=== PATIENT | female | born 1995 | race Caucasian/White ===

== ENCOUNTER 2017-01-13 12:33 | Emergency (ER) | payer BC ==
[~2017-01-13 12:33] MED LIST: METH-37 PO; PRED20TA PO; TRAM50TA PO
[2017-01-13 12:37] VITALS: BP 139/86
--- NOTE | 2017-01-13 13:37 | PHYS DOC ---
General Chief Complaint: BACK PAIN OR INJURY Stated Complaint: BACK PAIN Time Seen by MD: 12:35 Source: patient, family Exam Limitations: no limitations Problems: History of Present Illness Initial Comments Pt is 21/F to ED with mom c/o back pain. Pt states she has a new growth R flank which is causing her severe pain. States she's had several lipomas removed in the past, has scars b/l iliac crests. Now says past 3 weeks severe back pain radiating from the skin bump just right lateral to spine at around L2. States this causes pain radiating around to front of abdomen and down leg. States the pain is located in small nodule in skin (she manually directs my finger). No prearrival treatment, pt with crying voice as she talks no tears. Pt is noted to be resting comfortably when she doesn't realize she's being observed, becomes tearful/complaining of severe pain when engaged with staff. Denies trauma, no leg weakness/saddle anesthesia/incontinence. Timing/Duration: constant (3 wks) Severity: severe Associated Symptoms: other Allergies: Coded Allergies: cyclobenzaprine (Verified Adverse Reaction, Unknown, Nausea and Vomiting, 01/13/17) naproxen (Verified Adverse Reaction, Unknown, Nausea and Vomiting, 01/13/17 ) Past Medical History Medical History: asthma, other (DDD, chronic back pain) Surgical History: no surgical history (lipoma removals) Social History Smoker: cigarettes Alcohol: occasionally Drugs: marijuana Review of Systems Constitutional: denies chills, denies fever Respiratory: denies cough, denies shortness of breath Cardiovascular: denies chest pain, denies palpitations Gastrointestinal: denies nausea, denies vomiting Genitourinary: denies frequency, denies hematuria Musculoskeletal: see HPI Skin: see HPI Psychiatric/Neurological: denies headache, denies numbness, denies paresthesia Physical Exam General Appearance: no apparent distress Eyes: bilateral eye EOMI, bilateral eye PERRL, bilateral eye normal inspection Ear, Nose, Throat: hearing grossly normal, normal ENT inspection Neck: non-tender, supple Respiratory: normal breath sounds, no respiratory distress Cardiovascular: normal peripheral pulses, regular rate, rhythm Gastrointestinal: non tender, soft Back: no CVA tenderness, no vertebral tenderness Extremities: non-tender, normal inspection Neurologic/Psychiatric: investment officer II-XII nml as tested, no motor/sensory deficits, alert, normal mood/affect, oriented x 3, other (dtrs/strength/sensory equal and intact b/l LE, neg SLR b/l) Skin: normal color, warm/dry (right low back lateral on right side of spine no acute or abnormal findings skin or subcutaneous. Nodule pt directed me to either small lipoma or lymph node, ) Orders, Labs, Meds Discussed pt symptoms with her at length. Pain distribution and reported etiology do not correlate, pt has no CVA tenderness so pyelo not likely. Pt insist sx are in her skin, requests pain meds and surgical excision of the skin lesion "I already have bone on bone in my spine, I am literally falling apart. I don't want to be paralyzed, I need this removed." I notified her that nothing is medically indicated to be removed emergently here in the ED. No cause of pain requiring narcotic pain medication. Pt becomes very angry, demanding further workup and pain meds. Pt advised to f/u PCP but she states Dr Mccullough doesn't do anything to help her back pain, she wants all of her health needs met here in ED. "Do I just need to go out and hurt or paralyze myself to get help?" Pt had already notified me that Dr Mccullough put her on phentermine trial for weight loss in attempt to treat pt stated back pain. Requested a list of doctors, but as she went down the list she stated she had either seen specific doctor and they don't help her or they were affiliated with [facility]. Pt states she won't see [facility] doctors. Pt given the benefit of the doubt, but she refused toradol. Said the prescribed meds would not help her, pt angry raising her voice cursing. Drug seeking behavior noted. Pt advised to stop smoking and abusing marijuana. Departure Time of Disposition: 13:34 Disposition: 01 HOME, SELF-CARE Diagnosis: back pain NOS, possible lipoma Condition: GOOD Patient Instructions: Lipoma-Brief Additional Instructions: Activity as tolerated. Aggressive hydration with gatorade, water. OTC tylenol for baseline pain. Heating pad 15-20 minutes, 4-6 times daily. Rx: lidoderm, use as directed. Follow up with Amrita Mccullough for recheck in 3-5 days. Return to ED with new or changing symptoms. KING GARCIA DO Jan 13, 2017 13:37
[2017-01-13 13:45] LABS: BILIRUBIN,URINE NEG (NEG); CLARITY,URINE CLEAR; COLOR,URINE YELLOW; GLUCOSE,URINE NEG (NEG); UROBILINOGEN,URINE 0.2 mg/dL (0.2 mg/dL)
[2017-01-13] MEDS ORDERED: KETOROLAC 60 MG/2 ML VIAL. IM ONE (13:45)
[2017-01-13 13:46] LABS: NITRITE,URINE NEG (NEG)
== END 2017-01-13 13:45 | disposition home or self-care (01) ==
LOC: ER 12:33
DX: M54.9 Dorsalgia, unspecified (principal); G89.29 Other chronic pain; Z76.5 Malingerer [conscious simulation]; J45.909 Unspecified asthma, uncomplicated; F17.210 Nicotine dependence, cigarettes, uncomplicated; F12.10 Cannabis abuse, uncomplicated; Z88.8 Allergy status to other drugs, medicaments and biological substances
CPT/HCPCS: 81003; 96372; 99283; J1885

== ENCOUNTER → 2017-02-09 | Outpatient (CLI) | payer BC ==
[2017-01-13 12:37] VITALS: BP 139/86
--- NOTE | 2017-02-09 12:50 | RAD ---
Soft tissue ultrasound History: Lipoma of the lumbosacral region, D17.79. Comparison: None. Findings: Ultrasound imaging was performed by ocular care technologist. Ultrasound imaging was first performed involving previous surgical scar. On the left side of the surgical scar, there appears to be a small irregular focus of mildly increased echogenicity measuring 1.0 x 0.4 x 0.3 cm. This could represent small residual/recurrent lipoma versus scarring. Additional focus with similar appearance is seen in the right lower back at the scar. This area measures 0.9 x 0.6 x 0.3 cm. Additional imaging was performed in the right lower back in area of apparent new palpable lesion. No ultrasound lesion is seen. Impression: 1. Associated with previous surgical site, there are 2 small, mildly irregular hyperechoic masses involving the subcutaneous fat. These could represent areas of scarring versus small residual/recurrent lipomas. 2. No suspicious ultrasound abnormality is identified in the right lower back superior to the scar, in area of new palpable abnormality.
== END | disposition home or self-care (01) ==
LOC: US 11:04
PROVIDERS: ATTEND Physician Assistant
DX: D17.79 Benign lipomatous neoplasm of other sites (principal)
CPT/HCPCS: 76536

== ENCOUNTER 2020-08-15 19:31 | Emergency (ER) | payer BC ==
[~2020-08-15] VITALS: Ht 160 cm; Wt 82.7 kg
[2020-08-15 19:49] VITALS: BP 149/80
[2020-08-15] MEDS ORDERED: ONDANSETRON PF 4 MG/2 ML VIAL. ONE (19:59)
[2020-08-15 20:06] LABS: BARBITURATES NEG (NEG); BENZODIAZEPINES NEG (NEG); CANNABINOIDS POS (NEG); COCAINE NEG (NEG); METHADONE NEG (NEG); OPIATES NEG (NEG); PHENCYCLIDINE NEG (NEG)
[2020-08-15 20:11] LABS: BILIRUBIN,URINE NEG (NEG); CLARITY,URINE HAZY; COLOR,URINE PINK; GLUCOSE,URINE NEG (NEG)
[2020-08-15 20:12] LABS: NITRITE,URINE NEG (NEG); UROBILINOGEN,URINE 0.2 mg/dL (0.2 mg/dL)
[2020-08-15 20:14] LABS: BACTERIA,URINE FEW /HPF (0-FEW); RBC,URINE TNTC /HPF (0-2); SQUAMOUS EPITHELIAL CELL,UR OCC /LPF; WBC,URINE RARE /HPF (0-4)
[2020-08-15 20:15] LABS: AMPHETAMINE/METHAMPHETAMINE NEG (NEG)
[2020-08-15] MEDS ORDERED: ONDANSETRON PF 4 MG/2 ML VIAL. IVP ONE (20:15)
--- NOTE | 2020-08-15 20:20 | PHYS DOC ---
Past History Past Medical History: Asthma, Other (ANGELLA HERRON APRN) Past Surgical History: Other Additional Past Surgical Histo: BAKC SX (ANGELLA HERRON APRN) Alcohol Use: Occasionally Drug Use: Marijuana (ANGELLA HERRON APRN) Adult General Chief Complaint Chief Complaint: ABDOMINAL PAIN IN HPI HPI Patient is a female 2, Para, 1 miscarriage who presents to the ED today complaining of vaginal bleeding and that began this evening. Patient is also complaining of mild intermittent lower abdominal cramping. Denies anything specifically exacerbating or relieving her symptoms. Denies any fever, denies any nausea vomiting. She states she is very anxious right now because the last time she lost a at 3 weeks. (ANGELLA HERRON APRN) Review of Systems Review of Systems Constitutional: Denies fever or chills [] Eyes: Denies change in visual acuity, redness, or eye pain [] HENT: Denies nasal congestion or sore throat [] Respiratory: Denies cough or shortness of breath [] Cardiovascular: No additional information not addressed in HPI [] GI: Denies abdominal pain, nausea, vomiting, bloody stools or diarrhea [] Reports vaginal bleeding in : Denies dysuria or hematuria [] Musculoskeletal: Denies back pain or joint pain [] Integument: Denies rash or skin lesions [] Neurologic: Denies headache, focal weakness or sensory changes [] Endocrine: Denies polyuria or polydipsia [] All other systems were reviewed and found to be within normal limits, except as documented in this note. (ANGELLA HERRON APRN) Current Medications Current Medications Current Medications Medications (Trade) Dose Ordered Sig/Hetal Start Time Stop Time Status Last Admin Dose Admin Ondansetron HCl (Zofran) 4 mg 1X ONCE 08/15/20 20:15 08/15/20 20:16 DC 08/15/20 20:13 4 MG (ANGELLA HERRON APRN) Allergies Allergies Allergies Coded Allergies Type Severity Reaction Last Updated Verified cyclobenzaprine Adverse Reaction Unknown Nausea and Vomiting 01/13/17 Yes naproxen Adverse Reaction Unknown Nausea and Vomiting 01/13/17 Yes (ANGELLA HERRON APRN) Physical Exam Physical Exam Constitutional: Well developed, well nourished, no acute distress, non-toxic appearance. [] HENT: Normocephalic, atraumatic, bilateral external ears normal, oropharynx moist, no oral exudates, nose normal. [] Eyes: PERRLA, EOMI, conjunctiva normal, no discharge. [] Neck: Normal range of motion, no tenderness, supple, no stridor. [] Cardiovascular:Heart rate regular rhythm, no murmur [] Lungs & Thorax: Bilateral breath sounds clear to auscultation [] Abdomen: Bowel sounds normal, soft, no tenderness, no masses, no pulsatile masses. [] Pelvic exam External pelvic appears normal, cervix is visualized, closed, no CMT, no adnexal tenderness, small amount of bright red blood in the vaginal vault. Skin: Warm, dry, no erythema, no rash. [] Back: No tenderness, no CVA tenderness. [] Extremities: No tenderness, no cyanosis, no clubbing, ROM intact, no edema. [] Neurologic: Alert and oriented X 3, normal motor function, normal sensory function, no focal deficits noted. [] Psychologic: Affect normal, judgement normal, mood normal. [] (ANGELLA HERRON APRN) Current Patient Data Vital Signs Vital Signs Date Time Temp Pulse Resp B/P (MAP) Pulse Ox O2 Delivery O2 Flow Rate FiO2 08/15/20 19:49 97.3 95 18 149/80 (103) 97 Room Air Lab Results Laboratory Tests Test 08/15/20 19:40 08/15/20 20:03 Urine Collection Type Unknown Urine Color [place] Urine Clarity Hazy Urine pH 6.0 Urine Specific [place] 1.010 Urine Protein Neg (NEG-TRACE) Urine Glucose (UA) Neg mg/dL (NEG) Urine Ketones (Stick) Neg mg/dL (NEG) Urine Blood Large (NEG) Urine Nitrite Neg (NEG) Urine Bilirubin Neg (NEG) Urine Urobilinogen Dipstick 0.2 mg/dL (0.2 mg/dL) Urine Leukocyte Esterase Trace (NEG) Urine RBC Tntc /HPF (0-2) Urine WBC Rare /HPF (0-4) Urine Squamous Epithelial Cells Occ /LPF Urine Bacteria Few /HPF (0-FEW) Urine Opiates Screen Neg (NEG) Urine Methadone Screen Neg (NEG) Urine Barbiturates Neg (NEG) Urine Phencyclidine Screen Neg (NEG) Urine Amphetamine/Methamphetamine Neg (NEG) Urine Benzodiazepines Screen Neg (NEG) Urine Cocaine Screen Neg (NEG) Urine Cannabinoids Screen Pos (NEG) Urine Ethyl Alcohol Neg (NEG) POC Urine HCG, Qualitative hcg positive (Negative) Microbiology 08/15/20 Wet Prep - Final, Complete (ANGELLA HERRON APRN) EKG EKG [] (ANGELLA HERRON APRN) Radiology/Procedures Radiology/Procedures []PROCEDURE: OB <14 WKS W/TV Study: US OB <14 WKS W/TV DATE: 08/15/2020 7:35 PM INDICATION: Vaginal bleeding. Cramping. COMPARISON: None. TECHNIQUE: Transabdominal and transvaginal ultrasonography of the pelvis was performed. Color Doppler and duplex were utilized as appropriate. FINDINGS: The uterus is measured at 8.3 x 5.1 x 3.9 cm. Thickened endometrium measuring up to 1.1 cm. No intrauterine gestational sac. Left adnexal ectopic with a living embryo with a heart rate of 109 bpm. The crown-rump length is measured at 0.38 cm and mean gestational sac diameter at 1.76 cm. Yolk sac present as well. The left ovary to include the adjacent ectopic is measured at 4.4 x 4.1 x 2.6 cm. The right ovary measures 2.7 x 1.6 x 1.6 cm. Doppler flow maintained to the ovaries. Small volume simple appearing free fluid within the pelvic cul-de-sac. IMPRESSION: Left adnexal ectopic implanted adjacent to the ovary. The exact location of the ectopic is difficult to confirm but would most likely be within the fallopian tube. The gestation is viable with a heart rate of 109 bpm and a crown-rump length corresponding to an estimated gestational age of 6 weeks 0 days. No findings of rupture with only a small amount of simple fluid within the pelvic cul-de-sac. FOR INTERNAL CODING PURPOSES Critical result: Findings discussed with ANGELLA HERRON on 08/15/2020 at 2120 hours. RESULT CODE: (C) Electronically signed by: DIGNA HORTON MD (08/15/2020 9:31 PM) [id number] DICTATED AND SIGNED BY: DIGNA HORTON MD DATE: 08/15/202130 CC: SHAHEEN LUA; ANGELLA HERRON APRN ~ (ANGELLA HERRON APRN) Heart Score Risk Factors: Risk Factors: DM, Current or recent (<one month) smoker, HTN, HLP, family history of CAD, obesity. Risk Scores: Risk Factors: DM, Current or recent (<one month) smoker, HTN, HLP, family history of CAD, obesity. (ANGELLA HERRON APRN) Course & Med Decision Making Course & Med Decision Making Pertinent Labs and Imaging studies reviewed. (See chart for details) This is a 25-year-old female patient presenting to the ED today for vaginal bleeding and . She is a 1 para 0 with 1 miscarriage Vitals on arrival to the ED temperature 97.3, heart rate 95, respiration 18 on room air, blood pressure 149/80, and O2 sats 97%. Positive urine hCG, urine analysis negative for infection. CBC with a WBC of 12.8, hemoglobin of 12.7, hematocrit of 38.8, beta-hCG 12,184. [address] Castaneda who accepted patient at [facility] OB floor EMS to transport. Type and screen pending. (ANGELLA HERRON APRN) Dragon Disclaimer Dragon Disclaimer This electronic medical record was generated, in whole or in part, using a voice recognition dictation system. (ANGELLA HERRON APRN) Departure Departure: Impression: Primary Impression: Ectopic Disposition: 05 DC/TRF OTHER TYPE INSTITUTI Condition: STABLE Referrals: SHAHEEN LUA (PCP) Attending Co-Sign Attending Co-Sign The patient was seen and interviewed as well as examined at the bedside. The chart was reviewed. The case was discussed. Agree with the plan of care. (LOVE KENT MD) Problem Qualifiers Primary Impression: Ectopic Location of ectopic : ovarian Intrauterine status: without intrauterine Laterality: left Qualified Codes: O00.202 - Left ovarian without intrauterine ANGELLA HERRON APRN Aug 15, 2020 20:20 LOVE KENT MD Aug 16, 2020 08:18
[2020-08-15 20:54] LABS: BASO % 0 % (0-3); CALCIUM 9.5 mg/dL (8.5-10.1); EOS # 0.1 x10^3/uL (0.0-0.7); EOS % 1 % (0-3); HEMATOCRIT 38.8 % (36.0-47.0); HEMOGLOBIN 12.7 g/dL (12.0-15.5); LYMPH # 2.3 x10^3/uL (1.0-4.8); LYMPH % 18 % (24-48); MEAN CORPUSCULAR HEMOGLOBIN 29 pg (25-35); MEAN CORPUSCULAR HGB CONC 33 g/dL (31-37); MEAN CORPUSCULAR VOLUME 89 fL (79-100); MONO # 0.6 x10^3/uL (0.0-1.1); MONO % 5 % (0-9); NEUT # 9.8 x10^3uL (1.8-7.7); NEUT % 77 % (31-73); PLATELET COUNT 239 x10^3/uL (140-400); POTASSIUM 3.2 mmol/L (3.5-5.1); RED BLOOD COUNT 4.35 x10^6/uL (3.50-5.40); RED CELL DISTRIBUTION WIDTH 13.9 % (11.5-14.5); WHITE BLOOD COUNT 12.8 x10^3/uL (4.0-11.0)
[2020-08-15 20:59] LABS: ALBUMIN 4.1 g/dL (3.4-5.0); ALBUMIN/GLOBULIN RATIO 1.2 (1.0-1.7); TOTAL BILIRUBIN 0.2 mg/dL (0.2-1.0); TOTAL PROTEIN 7.6 g/dL (6.4-8.2)
--- NOTE | 2020-08-15 21:34 | RAD ---
Study: US OB <14 WKS W/TV DATE: 08/15/2020 7:35 PM INDICATION: Vaginal bleeding. Cramping. COMPARISON: None. TECHNIQUE: Transabdominal and transvaginal ultrasonography of the pelvis was performed. Color Doppler and duplex were utilized as appropriate. FINDINGS: The uterus is measured at 8.3 x 5.1 x 3.9 cm. Thickened endometrium measuring up to 1.1 cm. No intrauterine gestational sac. Left adnexal ectopic with a living embryo with a heart rate of 109 bpm. The crown-rump length is measured at 0.38 cm and mean gestational sac diameter at 1.76 cm. Yolk sac present as well. The left ovary to include the adjacent ectopic is measured at 4.4 x 4.1 x 2.6 cm. The right ovary measures 2.7 x 1.6 x 1.6 cm. Doppler flow maintained to the ovaries. Small volume simple appearing free fluid within the pelvic cul-de-sac. IMPRESSION: Left adnexal ectopic implanted adjacent to the ovary. The exact location of the ectopic is difficult to confirm but would most likely be within the fallopian tube. The gestation is viable with a heart rate of 109 bpm and a crown-rump length corresponding to an estimated gestational age of 6 weeks 0 days. No findings of rupture with only a small amount of simple fluid within the pelvic cul-de-sac. FOR INTERNAL CODING PURPOSES Critical result: Findings discussed with ANGELLA HERRON on 08/15/2020 at 2120 hours. RESULT CODE: (C) Electronically signed by: DIGNA HORTON MD (08/15/2020 9:31 PM) [id number]
[2020-08-18 18:08] LABS: CHLAMYDIA PROBE Negative (Negative)
== END 2020-08-15 22:21 | disposition short-term general hospital (02) ==
LOC: ER 19:31
DX: O00.202 Left ovarian pregnancy without intrauterine pregnancy (principal); J45.909 Unspecified asthma, uncomplicated; Z88.8 Allergy status to other drugs, medicaments and biological substances
CPT/HCPCS: 76801; 76817; 80053; 80307; 81001; 81025; 84702; 85025; 86850; 86900; 86901; 87491; 87591; 96374; 99285; G0480; J2405; Q0111; 36415

== ENCOUNTER → 2021-08-11 | Outpatient (CLI) | payer BC ==
[2021-08-11 18:46] LABS: BASO % 0 % (0-3); EOS # 0.2 x10^3/uL (0.0-0.7); EOS % 2 % (0-3); HEMATOCRIT 40.8 % (36.0-47.0); HEMOGLOBIN 13.6 g/dL (12.0-15.5); LYMPH # 2.8 x10^3/uL (1.0-4.8); LYMPH % 25 % (24-48); MEAN CORPUSCULAR HEMOGLOBIN 30 pg (25-35); MEAN CORPUSCULAR HGB CONC 33 g/dL (31-37); MEAN CORPUSCULAR VOLUME 89 fL (79-100); MONO # 0.6 x10^3/uL (0.0-1.1); MONO % 6 % (0-9); NEUT # 7.6 x10^3uL (1.8-7.7); NEUT % 68 % (31-73); PLATELET COUNT 274 x10^3/uL (140-400); RED BLOOD COUNT 4.57 x10^6/uL (3.50-5.40); RED CELL DISTRIBUTION WIDTH 13.7 % (11.5-14.5); WHITE BLOOD COUNT 11.3 x10^3/uL (4.0-11.0)
[2021-08-11 18:57] LABS: PREG TEST PT QUAL POSITIVE (NEG)
== END ==
LOC: LAB 15:59
PROVIDERS: ATTEND Obstetrics & Gynecology
DX: O09.71 Supervision of high risk pregnancy due to social problems, first trimester (principal); N83.201 Unspecified ovarian cyst, right side; N83.202 Unspecified ovarian cyst, left side
CPT/HCPCS: 84702; 84703; 85025; 86003; 86317; 86592; 86703; 86706; 86762; 86765; 86787; 86803; 86850; 86900; 86901; 87340; 87522

== ENCOUNTER → 2021-08-13 | Outpatient (CLI) | payer BC | LOC: LAB 16:23 | PROVIDERS: ATTEND Obstetrics & Gynecology | DX: O09.71 Supervision of high risk pregnancy due to social problems, first trimester (principal) | CPT/HCPCS: 36415; 84702 ==

== ENCOUNTER 2021-08-14 12:05 | Emergency (ER) | payer BC ==
[~2021-08-14] VITALS: Ht 162.6 cm; Wt 85.7 kg
--- NOTE | 2021-08-14 12:25 | PHYS DOC ---
Past History Past Medical History: Asthma, Other (YAZ MORRISON APRN) Past Surgical History: Other Additional Past Surgical Histo: BAKC SX (YAZ MORRISON APRN) Alcohol Use: Occasionally Drug Use: Marijuana (YAZ MORRISON APRN) General Adult EDM: Chief Complaint: VAGINAL BLEEDING HPI: HPI: Patient is a 26-year-old female who presents to the emergency department for a light pink spotting since Tuesday. Patient has seen her SOLID WASTE ENGINEER 3 times since and received a phone call today that stated that she had a that was not viable and needed to go to the emergency department for an ultrasound. Patient is a high risk due to multiple tubules in the past. Patient states she is approximately 4 weeks . Her last menstrual period was July 08. She denies saturating any pads, clots. Patient is G4, P0. Patient denies any pain, abdominal cramping, urinary symptoms, nausea or vomiting. (YAZ MORRISON APRN) Review of Systems: Review of Systems: CONSTITUTIONAL: denies fevers GI: See HPI : See HPI (YAZ MORRISON APRN) Allergies: Allergies: Allergies Coded Allergies Type Severity Reaction Last Updated Verified cyclobenzaprine Adverse Reaction Unknown Nausea and Vomiting 01/13/17 Yes naproxen Adverse Reaction Unknown Nausea and Vomiting 01/13/17 Yes (YAZ MORRISON APRN) Physical Exam: PE: Constitutional: Well developed, well nourished, no acute distress, non-toxic appearance. [] HENT: Normocephalic, atraumatic Eyes: PERRL, EOMI, conjunctiva normal, no discharge. [] Neck: Normal range of motion, no stridor Cardiovascular:Heart rate regular rhythm, no murmur [] Lungs & Thorax: Bilateral breath sounds clear to auscultation [] Abdomen: Bowel sounds normal, soft, no tenderness, no masses, no pulsatile masses. [] Skin: Warm, dry, no erythema, no rash. [] Back: No tenderness, normal range of motion Extremities: No tenderness, no cyanosis, no clubbing, ROM intact, no edema. [] Neurologic: Alert and oriented X 3, normal motor function, normal sensory function, no focal deficits noted. [] Psychologic: Affect normal, judgement normal, mood normal. [] (YAZ MORRISON APRN) EKG: EKG: [] (YAZ MORRISON APRN) Radiology/Procedures: Radiology/Procedures: []PROCEDURE: OB <14 WKS W/TV EXAM: Obstetrics sonogram. HISTORY: Vaginal bleeding. TECHNIQUE: Transabdominal and transvaginal sonographic imaging of the pelvis was performed. COMPARISON: None. FINDINGS: The uterus measures 8.8 x 4.2 x 4.0 cm. The endometrial stripe measures 11 mm in thickness. No intrauterine gestational sac is seen. The ovaries are normal in size and demonstrate normal blood flow. There is a 1.3 cm round heterogeneous lesion slightly hyperechoic to the adjacent right ovary within the right adnexa. This may be a thick-walled involuting paraovarian cyst. The possibility of a solid lesion is not excluded. There is a 2.6 cm complex cyst with suspected internal debris or irregular hinton within the left ovary. IMPRESSION: 1. No evidence of an intrauterine gestation. Note is made that an intrauterine gestational sac is not expected at the reported beta-hCG level 874. Correlation with serial beta-hCG levels to confirm an appropriate rise and short-term sonographic follow-up is recommended to confirm viability and exclude a chemical or ectopic gestation. 2. 1.3 cm suspected complicated cyst or nodule adjacent to the or right ovary and 2.6 cm complicated cyst within the left ovary. Attention at the time of short-term follow-up is recommended. Electronically signed by: Katie Mitchell MD (08/14/2021 1:38 PM) [id number] DICTATED AND SIGNED BY: KATIE MITCHELL MD DATE: 08/14/21 1333 CC: SHAHEEN LUA; YAZ MORRISON APRN ~MTH0 0 (YAZ MORRISON APRN) Heart Score: C/O Chest Pain: N/A Risk Factors: Risk Factors: DM, Current or recent (<one month) smoker, HTN, HLP, family history of CAD, obesity. Risk Scores: Score 0 - 3: 2.5% MACE over next 6 weeks - Discharge Home Score 4 - 6: 20.3% MACE over next 6 weeks - Admit for Clinical Observation Score 7 - 10: 72.7% MACE over next 6 weeks - Early Invasive Strategies (YAZ MORRISON APRN) Course & Med Decision Making: Course & Med Decision Making Pertinent Labs and Imaging studies reviewed. (See chart for details) [] Patient presents to the emergency department for light pink vaginal spotting since Tuesday. Patient was told she did not have a viable and needed an ultrasound she is a high risk due to tubals in the past. Patient's work-up in the ER consisted of urinalysis, blood work, ultrasound. Patient states that she knows that she is Rh-. RhoGam administered in the emergency department. Type and screen showed Rh-. Urinalysis was negative for UTI. Blood work in the ER is unremarkable. Patient's ultrasound showed no intrauterine gestation. Ovaries were normal size and had good flow to both ovaries. Patient advised to follow-up with her SOLID WASTE ENGINEER. I discussed with patient all findings and diagnostic testing as well as the need to follow-up with PCP for further evaluation and treatment or return to the ER if any new or worsening symptoms. Strict return precautions were also discussed at length. Patient voiced understanding and agreement with the plan. Patient is hemodynamically stable at the time of disposition. (YAZ MORRISON APRN) Dragon Disclaimer: Dragon Disclaimer: This electronic medical record was generated, in whole or in part, using a voice recognition dictation system. (YAZ MORRISON APRN) Attending Co-Sign The patient was seen and interviewed as well as examined at the bedside. The chart was reviewed. The case was discussed. Agree with the plan of care. (KIRAN GONZALEZ DO) Departure Departure: Impression: Primary Impression: Vaginal bleeding affecting early Disposition: 01 HOME / SELF CARE / HOMELESS Condition: GOOD Referrals: SHAHEEN LUA (PCP) Patient Instructions: Vaginal Bleeding During , First Trimester Additional Instructions: You were seen in the emergency department for vaginal bleeding and . The ultrasound did not show an intrauterine gestation. Your ovaries were normal sized and had good blood flow. However, you were noted to have cysts on both ovaries. Follow-up with your SOLID WASTE ENGINEER regarding these findings as well as monitoring of your symptoms and repeat lab work. I would call your OBGYN when you are discharged from the ER as they may want you to return to their office in 2 days to have your BetaHCG levels rechecked. Return to the emergency department if you develop abdominal pain, back pain, worsening of your vaginal bleeding, intractable nausea or vomiting, lightheadedness, high fevers refractory to treatment or any new or worsening concerns. EMERGENCY DEPARTMENT GENERAL DISCHARGE INSTRUCTIONS Thank you for coming to [facility] (ED) today and trusting us with you care. We trust that you had a positivie experience in our Emergency Department. If you wish to speak to the department management, you may call the director at . YOUR FOLLOW UP INSTRUCTIONS ARE FOLLOWS: 1. Do you have a private Doctor? If you do not have a private doctor, please ask for a resource list of physicians or clinics that may be able to assist you with follow up care. 2. The Emergency Physician has interpreted your x-rays. The X-Ray specialist will also review them. If there is a change in the findings, you will be notified in 48 hours when at all possible. 3. A lab test or culture has been done, your results will be reviewed and you will be notified if you need a change in treatment. ADDITIONAL INSTRUCTIONS AND INFORMATION: 1. Your care today has been supervised by a physician who is specially trained in emergency care. Many problems require more than one evaluation for a complete diagnosis and treatment. We recommend that you schedule your follow up appointment as recommended to ensure complete treatment of you illness or injury. If you are unable to obtain follow up care and continue to have a problem, or if your condition worsens, we recommend that you return to the ED. 2. We are not able to safely determine your condition over the phone nor are we able to give sound medical advice over the phone. For these safety reasons, if you call for medical advice we will ask you to come to the ED for further evaluation. 3. If you have any questions regarding these discharge instructions please call the ED at [phone]. SAFETY INFORMATION: In the interest of safety, wellness, and injury prevention; we encourage you to wear your sealbelt, if you smoke; quite smoking, and we encourage family to use a protective helmet for bicycling and other sporting events that present an increased risk for head injury. IF YOUR SYMPTOMS WORSEN OR NEW SYMPTOMS DEVELOP, OR YOU HAVE CONCERNS ABOUT YOUR CONDITION; OR IF YOUR CONDITION WORSENS WHILE YOU ARE WAITING FOR YOUR FOLLOW UP APPOINTMENT; EITHER CONTACT YOUR PRIMARY CARE DOCTOR, THE PHYSICIAN WHOSE NAME AND NUMBER YOU WERE GIVEN, OR RETURN TO THE ED IMMEDIATELY. YAZ MORRISON APRN Aug 14, 2021 12:25 KIRAN GONZALEZ DO Aug 14, 2021 17:41
[2021-08-14 12:53] LABS: BASO % 1 % (0-3); EOS # 0.1 x10^3/uL (0.0-0.7); EOS % 2 % (0-3); HEMATOCRIT 39.7 % (36.0-47.0); HEMOGLOBIN 13.4 g/dL (12.0-15.5); LYMPH # 2.2 x10^3/uL (1.0-4.8); LYMPH % 26 % (24-48); MEAN CORPUSCULAR HEMOGLOBIN 30 pg (25-35); MEAN CORPUSCULAR HGB CONC 34 g/dL (31-37); MEAN CORPUSCULAR VOLUME 90 fL (79-100); MONO # 0.5 x10^3/uL (0.0-1.1); MONO % 6 % (0-9); NEUT # 5.6 x10^3uL (1.8-7.7); NEUT % 66 % (31-73); PLATELET COUNT 254 x10^3/uL (140-400); RED BLOOD COUNT 4.44 x10^6/uL (3.50-5.40); RED CELL DISTRIBUTION WIDTH 13.3 % (11.5-14.5); WHITE BLOOD COUNT 8.5 x10^3/uL (4.0-11.0)
[2021-08-14 13:03] LABS: CALCIUM 9.3 mg/dL (8.5-10.1); CREATININE 0.7 mg/dL (0.6-1.0); GFR 100.4; POTASSIUM 3.6 mmol/L (3.5-5.1)
--- NOTE | 2021-08-14 13:40 | RAD ---
EXAM: Obstetrics sonogram. HISTORY: Vaginal bleeding. TECHNIQUE: Transabdominal and transvaginal sonographic imaging of the pelvis was performed. COMPARISON: None. FINDINGS: The uterus measures 8.8 x 4.2 x 4.0 cm. The endometrial stripe measures 11 mm in thickness. No intrauterine gestational sac is seen. The ovaries are normal in size and demonstrate normal blood flow. There is a 1.3 cm round heterogeneous lesion slightly hyperechoic to the adjacent right ovary within the right adnexa. This may be a thick-walled involuting paraovarian cyst. The possibility of a solid lesion is not excluded. There is a 2.6 cm complex cyst with suspected internal debris or irreg ular hinton within the left ovary. IMPRESSION: 1. No evidence of an intrauterine gestation. Note is made that an intrauterine gestational sac is not expected at the reported beta-hCG level 874. Correlation with serial beta-hCG levels to confirm an a ppropriate rise and short-term sonographic follow-up is recommended to confirm viability and exclude a chemical or ectopic gestation. 2. 1.3 cm suspected complicated cyst or nodule adjacent to the or right ovary and 2.6 cm complicated cyst within the left ovary. Attention at the time of short-term follow-up is recommended. Electronically signed by: Katie Casey MD (08/14/2021 1:38 PM) [id number]
[2021-08-14 14:14] LABS: BACTERIA,URINE 0 /HPF (0-FEW); BILIRUBIN,URINE NEG (NEG); CLARITY,URINE CLEAR; COLOR,URINE STRAW; GLUCOSE,URINE NEG (NEG); NITRITE,URINE NEG (NEG); RBC,URINE OCC /HPF (0-2); SQUAMOUS EPITHELIAL CELL,UR MOD /LPF; UROBILINOGEN,URINE 0.2 mg/dL (0.2 mg/dL)
[2021-08-14 14:25] VITALS: BP 132/88
[2021-08-14 14:42] VITALS: BP 148/88
[2021-08-14 14:56] VITALS: BP 143/92
== END 2021-08-14 15:05 | disposition home or self-care (01) ==
LOC: ER 12:05
DX: O20.8 Other hemorrhage in early pregnancy (principal); Z3A.01 Less than 8 weeks gestation of pregnancy
CPT/HCPCS: 36415; 36430; 76801; 76817; 80048; 81001; 85025; 86850; 86900; 86901; 99285; J2790

== ENCOUNTER → 2021-08-21 | Outpatient (CLI) | payer BC ==
[2021-08-14 14:56] VITALS: BP 143/92
--- NOTE | 2021-08-21 10:59 | RAD ---
EXAMINATION: US OB <14 WKS +TV, 08/21/2021 9:51 AM CLINICAL INDICATION: Follow-up for viability TECHNIQUE: Grayscale, color and spectral Doppler ultrasound images of the pelvis via first trimester OB protocol. COMPARISON: OB ultrasound 08/14/2021 FINDINGS: The uterus measures 8.9 x 5.1 x 4.4 and is hypervascular, similar to the prior exam. The endometrial stripe measures 8 mm in thickness. There is no gestational sac or embryo. Right ovary measures 2.9 x 2.5 x 2.6 cm. A hyperechoic mass with peripheral hyperemia immediately adj acent to and abutting the right ovary has increased in size, now 2.6 x 2.1 x 2.1 cm, previously 1.1 x 1.3 x 0.9 cm (image 70/70). A previously seen cystic component at the center of the mass is no longe r visualized. The left ovary measures 3.2 x 3.4 x 1.7 cm. There is a 2.4 x 2.7 x 2.2 cm anechoic simple left ovaria n cyst, similar to prior ultrasound. IMPRESSION: 1. No intrauterine . 2. Increased size of solid hyperechoic mass with peripheral hyperemia immediately adjacent to the rig ht ovary, now 2.6 cm, previously 1.3 cm. This is suspicious for an ectopic . FOR INTERNAL CODING PURPOSES Critical result: Findings discussed with Dr. Palma at 08/21/2021 10:50 AM. RESULT CODE: (C) Electronically signed by: Anaid Thomas MD (08/21/2021 10:57 AM) [id number]
== END ==
LOC: US 09:44
PROVIDERS: ATTEND Obstetrics & Gynecology
DX: O09.71 Supervision of high risk pregnancy due to social problems, first trimester (principal)
CPT/HCPCS: 76801; 76817

== ENCOUNTER → 2021-08-24 | Outpatient (CLI) | payer BC ==
[2021-08-14 14:56] VITALS: BP 143/92
== END ==
LOC: LAB 15:11
PROVIDERS: ATTEND Obstetrics & Gynecology
DX: O09.71 Supervision of high risk pregnancy due to social problems, first trimester (principal)
CPT/HCPCS: 36415; 84702

== ENCOUNTER → 2021-08-31 | Outpatient (CLI) | payer BC ==
[2021-08-14 14:56] VITALS: BP 143/92
[2021-08-31 17:21] LABS: BASO % 0 % (0-3); EOS # 0.2 x10^3/uL (0.0-0.7); EOS % 2 % (0-3); HEMATOCRIT 37.6 % (36.0-47.0); HEMOGLOBIN 12.5 g/dL (12.0-15.5); LYMPH # 2.5 x10^3/uL (1.0-4.8); LYMPH % 23 % (24-48); MEAN CORPUSCULAR HEMOGLOBIN 30 pg (25-35); MEAN CORPUSCULAR HGB CONC 33 g/dL (31-37); MEAN CORPUSCULAR VOLUME 90 fL (79-100); MONO # 0.6 x10^3/uL (0.0-1.1); MONO % 5 % (0-9); NEUT # 7.8 x10^3uL (1.8-7.7); NEUT % 70 % (31-73); PLATELET COUNT 288 x10^3/uL (140-400); RED BLOOD COUNT 4.18 x10^6/uL (3.50-5.40); RED CELL DISTRIBUTION WIDTH 13.5 % (11.5-14.5); WHITE BLOOD COUNT 11.2 x10^3/uL (4.0-11.0)
[2021-08-31 17:29] LABS: ALBUMIN 3.8 g/dL (3.4-5.0); CALCIUM 9.2 mg/dL (8.5-10.1); CREATININE 0.8 mg/dL (0.6-1.0); TOTAL BILIRUBIN 0.1 mg/dL (0.2-1.0); TOTAL PROTEIN 7.6 g/dL (6.4-8.2)
== END ==
LOC: LAB 16:22
PROVIDERS: ATTEND Physician Assistant
DX: O00.201 Right ovarian pregnancy without intrauterine pregnancy (principal)
CPT/HCPCS: 36415; 80053; 84702; 85025

== ENCOUNTER → 2021-09-22 | Outpatient (CLI) | payer BC ==
[2021-09-22 16:22] LABS: BASO % 0 % (0-3); EOS # 0.2 x10^3/uL (0.0-0.7); EOS % 2 % (0-3); HEMATOCRIT 36.5 % (36.0-47.0); HEMOGLOBIN 12.3 g/dL (12.0-15.5); LYMPH % 29 % (24-48); MEAN CORPUSCULAR HEMOGLOBIN 30 pg (25-35); MEAN CORPUSCULAR HGB CONC 34 g/dL (31-37); MEAN CORPUSCULAR VOLUME 90 fL (79-100); MONO # 0.6 x10^3/uL (0.0-1.1); MONO % 6 % (0-9); NEUT # 6.3 x10^3uL (1.8-7.7); NEUT % 63 % (31-73); PLATELET COUNT 248 x10^3/uL (140-400); RED BLOOD COUNT 4.08 x10^6/uL (3.50-5.40); RED CELL DISTRIBUTION WIDTH 13.8 % (11.5-14.5); WHITE BLOOD COUNT 10.1 x10^3/uL (4.0-11.0)
[2021-09-22 16:35] LABS: ALBUMIN/GLOBULIN RATIO 1.1 (1.0-1.7); CREATININE 0.8 mg/dL (0.6-1.0); POTASSIUM 3.8 mmol/L (3.5-5.1); TOTAL BILIRUBIN 0.2 mg/dL (0.2-1.0); TOTAL PROTEIN 7.8 g/dL (6.4-8.2)
== END ==
LOC: LAB 15:49
PROVIDERS: ATTEND Obstetrics & Gynecology
DX: O00.201 Right ovarian pregnancy without intrauterine pregnancy (principal)
CPT/HCPCS: 36415; 80053; 84702; 85025